=== PATIENT | female | born 1995 | race Caucasian/White ===

== ENCOUNTER 2018-12-25 15:33 | Inpatient (IN) | payer OTHER ==
[~2018-12-25] VITALS: Ht 160 cm; Wt 72.7 kg
[2018-12-25] MEDS ORDERED: DEXTROSE 5%-0.45% NACL 1,000 ML IV SCH (16:47)
[2018-12-25] MEDS ORDERED: NACL 0.9% 3 ML SYG IV SCH (17:00)
[2018-12-25] MEDS ORDERED: morphine 2 MG INJ IV PRN (17:00)
[2018-12-25] MEDS ORDERED: PIPER-TAZO 3.375 GM IV (PMX) 100 ML IVPB SCH (17:00)
[2018-12-25] MEDS: PIPER-TAZO 3.375 GM IV (PMX) 100 ML IVPB SCH (17:51)
[2018-12-25] MEDS: D5W-0.45 NACL + KCL 20 MEQ 1,000 ML IV SCH (17:51)
[2018-12-25] MEDS: morphine 2 MG INJ IV PRN (17:52)
--- NOTE | 2018-12-25 17:59 | HP ---
Date/Time of Note Date/Time of Note DATE: 12/25/18 TIME: 17:58 Assessment/Plan VTE Prophylaxis SCD applied (from Nsg): Yes Pharmacological prophylaxis: heparin Assessment/Plan Hospital Course 23 yo female with appendicitis - IV zosyn - Fluids while NPO - Dr Lawton from surgery to consult - Pain control HPI/ROS Admit Date/Time Admit Date/Time Dec 25, 2018 at 16:34 Hx of Present Illness 23 yo female wihtout pmh presents with abdominal pain Pain started about 12 noon today. Became very severe/disabling. Had nausea and vomiting. Went outside ED where she was given IV abx and analgesia. Feels better now. Wants to eat food ROS Constitutional: no complaints, improved Eyes: no complaints ENT: no complaints Respiratory: no complaints Cardiovascular: no complaints Gastrointestinal: no complaints Genitourinary: no complaints Musculoskeletal: no complaints Skin: no complaints Neurologic: no complaints Endocrine: no complaints Lymphatic: no complaints Psychological: no complaints, nl mood/affect Immunologic: no complaints PMH/Family/Social Past Medical History Medical History: no pertinent history Medications Current Medications IV Flush (NS 3 ml) 3 ml PER PROTOCOL IV ; Start 12/25/18 at 17:00 Morphine Sulfate (morphine) 2 mg Q1H PRN IV SEVERE PAIN LEVEL 7-10 Last administered on 12/25/18at 17:52; Admin Dose 2 MG; Start 12/25/18 at 17:30 Potassium Chloride/Dextrose/ Sod Cl 1,000 ml @ 130 mls/hr Q7H42M IV Last administered on 12/25/18at 17:51; Admin Dose 130 MLS/HR; Start 12/25/18 at 17:30 Piperacillin Sod/ Tazobactam Sod 100 ml @ 200 mls/hr Q6 IVPB Last administered on 12/25/18at 17:51; Admin Dose 200 MLS/HR; Start 12/25/18 at 18:00 Coded Allergies: No Known Allergy (Unverified , 12/25/18) Past Surgical History Past Surgical Hx: no surgical history Social History Alcohol Use: none Smoking Status: Never smoker Drug Use: none Exam/Review of Systems Exam Constitutional: alert, oriented, well developed Psych: no complaints, nl mood/affect Head: normocephalic, atraumatic Eyes: nl conjunctiva, EOMI, nl lids, nl sclera, PERRL ENMT: nl external ears & nose, nl lips & teeth, nl nasal mucosa & septum Neck: supple, non-tender Respiratory: clear to auscultation, normal air movement Cardiovascular: regular rate and rhythm, nl pulses Gastrointestinal: soft, nl liver, spleen, non-tender Musculoskeletal: nl extremities to inspection Extremities: normal pulses 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
[2018-12-25 18:11] VITALS: Ht 160 cm; Wt 72.7 kg
[2018-12-25 20:00] VITALS: BP 109/55; PULSE 105; RESP 18
[2018-12-25] MEDS: ACETAMINOPHEN 325 MG TAB PO PRN (20:58)
[2018-12-26] VITALS (19 sets, daily range): BP systolic 91–129; BP diastolic 44–79; PULSE 75–97; RESP 15–23
[2018-12-26] MEDS: PIPER-TAZO 3.375 GM IV (PMX) 100 ML IVPB SCH ×5 (00:05→23:41)
[2018-12-26] MEDS: D5W-0.45 NACL + KCL 20 MEQ 1,000 ML IV SCH ×2 (03:50→08:03)
--- NOTE | 2018-12-26 09:48 | PREAC ---
Date/Time of Note Date/Time of Note DATE: 12/26/18 TIME: 09:40 Anesthesia Eval and Record Evaluation Time Pre-Procedure Interview DATE: 12/26/18 TIME: 09:40 Age 23 Sex female NPO: 8 hrs Preoperative diagnosis appendicitis Planned procedure open appendicitis Past Medical History Past Medical History: None GI: Obesity (bmi 28) Surgery & Anesthesia Issues No known issue (never had anesthesia) Meds Anticoagulation: No Beta Katelyn within 24 hr: No Reason Beta Katelyn not given: Pt. not on B-Katelyn Current Medications IV Flush (NS 3 ml) 3 ml PER PROTOCOL IV ; Start 12/25/18 at 17:00 Morphine Sulfate (morphine) 2 mg Q1H PRN IV SEVERE PAIN LEVEL 7-10 Last administered on 12/25/18at 17:52; Admin Dose 2 MG; Start 12/25/18 at 17:30 Potassium Chloride/Dextrose/ Sod Cl 1,000 ml @ 130 mls/hr Q7H42M IV Last administered on 12/26/18at 08:03; Admin Dose 130 MLS/HR; Start 12/25/18 at 17:30 Piperacillin Sod/ Tazobactam Sod 100 ml @ 200 mls/hr Q6 IVPB Last administered on 12/26/18at 06:30; Admin Dose 200 MLS/HR; Start 12/25/18 at 18:00 Acetaminophen (Tylenol Tab) 650 mg Q6H PRN PO MILD PAIN(1-3)OR ELEVATED TEMP Last administered on 12/25/18at 20:58; Admin Dose 650 MG; Start 12/25/18 at 21:00 Meds reviewed: Yes Allergies Coded Allergies: No Known Allergy (Unverified , 12/25/18) Allergies Reviewed: Yes Labs/Studies Labs Reviewed: Reviewed by anesthesiologist Result Diagram: 12/26/18 0435 12/26/18 0435 Laboratory Tests 12/26/18 04:35 test: Negative Pre-procedure Exam Last vitals Vital Signs Date Temp Pulse Resp B/P (MAP) Pulse Ox O2 O2 Flow FiO2 Time Delivery Rate 12/26/18 98.9 89 18 91/44 (60) 94 Room Air 07:46 Airway: Adequate mouth opening, Adequate thyromental dist Mallampati: Mallampati II Teeth: Normal Lung: Normal Heart: Normal ASA Physical Status ASA physical status: 1 Emergency: None Planned Anesthetic General/MAC: ETT Planned Pain Management Parenteral pain med, Local by surgeon Pre-operative Attestations Prior to commencing anesthesia and surgery, the patient was re-evaluated, there was verification of: *The patient's identity *The results of appropriate recent lab work and preoperative vital signs *The above evaluation not changing prior to induction *Anesthetic plan, risk benefits, alternative and complications discussed with patient/family; questions answered; patient/family understands, accepts and wishes to proceed. ELADIA SINGH Dec 26, 2018 09:48
[2018-12-26] MEDS ORDERED: HYDROmorphONE 2 MG/ML SYG ONE (10:02)
[2018-12-26] MEDS ORDERED: MIDAZOLAM 1 MG/ML 2 ML INJ ONE (10:02)
[2018-12-26] MEDS ORDERED: LIDOCAINE 4% (MPF) 5 ML INJ ONE (10:06)
[2018-12-26] MEDS ORDERED: FAMOTIDINE 20 MG INJ ONE (10:26)
[2018-12-26] MEDS ORDERED: PROPOFOL 20 ML ONE (10:26)
[2018-12-26] MEDS ORDERED: LIDOCAINE 2% (SDV) 5 ML INJ ONE (10:26)
[2018-12-26] MEDS ORDERED: METOCLOPRAMIDE 10 MG INJ ONE (10:26)
[2018-12-26] MEDS ORDERED: ROCURONIUM 50 MG INJ ONE (10:26)
[2018-12-26] MEDS ORDERED: DEXAMETHASONE 4 MG/ML 5 ML INJ ONE (10:26)
[2018-12-26] MEDS ORDERED: ONDANSETRON 4 MG INJ ONE (10:27)
[2018-12-26] MEDS ORDERED: POLYMYXIN/BACITRACIN 1L IRRIG ONE (10:34)
[2018-12-26] MEDS ORDERED: GLYCOPYRROLATE 0.4 MG INJ ONE (10:58)
[2018-12-26] MEDS ORDERED: NEOSTIGMINE 3 MG/3 ML SYRINGE ONE (10:58)
[2018-12-26] MEDS ORDERED: HYDROmorphONE 1 MG/5 ML IV SYRINGE IV PRN ×3 (11:00)
[2018-12-26] MEDS ORDERED: MEPERIDINE 25 MG INJ IV PRN (11:00)
[2018-12-26] MEDS ORDERED: ONDANSETRON 4 MG INJ IV PRN (11:00)
[2018-12-26] MEDS ORDERED: OXYCODONE/ACETAMINOPHEN (5/325) TAB PO PRN ×2 (11:00)
[2018-12-26] MEDS ORDERED: LABETALOL HCL 20MG INJ IV PRN (11:00)
--- NOTE | 2018-12-26 11:18 | HP ---
DATE OF ADMISSION: 12/25/2018 DATE OF HISTORY AND PHYSICAL: 12/25/2018. ADMITTING DIAGNOSIS: Acute appendicitis. HISTORY OF PRESENT ILLNESS: The patient is a 23-year-old female began to develop severe right lower quadrant abdominal pain. She was seen at [facility] where CAT scan was performed and reveal ed evidence of acute appendicitis. She was then transferred to [facility] and Dr. Lawton was consulted for appendectomy. PAST MEDICAL HISTORY: None. MEDICATIONS: None. ALLERGIES: THE PATIENT HAS NO KNOWN DRUG ALLERGIES. SOCIAL HISTORY: The patient is otherwise healthy 23-year-old female. She does not abuse cigarettes or alcohol. FAMILY HISTORY: Noncontributory. PHYSICAL EXAMINATION: A focused exam is performed. There is marked tenderness in the right lower qu adrant over McBurney's point with rebound. No evidence of mass. No other findings on abdominal exam . ASSESSMENT: A 23-year-old female with acute appendicitis. PLAN: We will take the patient urgently to the OR for appendectomy. Dictated By: AUDIE LAWTON MD TL/NTS Conf#: [id number] DID#: [id number] CC: TATE MATT MD;*EndCC*
--- NOTE | 2018-12-26 12:38 | PAC ---
Date/Time of Note Date/Time of Note DATE: 12/26/18 TIME: 12:38 Post-Anesthesia Notes Post-Anesthesia Note Last documented vital signs Vital Signs Date Temp Pulse Resp B/P (MAP) Pulse Ox O2 O2 Flow FiO2 Time Delivery Rate 12/26/18 86 23 107/72 97 Room Air 12:18 (84) 12/26/18 8.0 11:43 12/26/18 98.0 11:23 Activity: WNL Respiratory function: WNL Cardiovascular function: WNL Mental status: Baseline Pain reasonably controlled: Yes Hydration appropriate: Yes Nausea/Vomiting absent: Yes ELADIA SINGH Dec 26, 2018 12:38
--- NOTE | 2018-12-26 13:26 | OPR ---
DATE OF OPERATION: 12/26/2018 PREOPERATIVE DIAGNOSIS: Acute appendicitis. POSTOPERATIVE DIAGNOSIS: Perforated appendicitis. PROCEDURE: Open appendectomy. ANESTHESIA: General. ANESTHESIOLOGIST: Nurse locum tenens, Kong Rose. SURGEON: Freedom Lawton MD. TELEGRAPHIC TYPEWRITER OPERATOR CHIEF: Debra Marquez MD. INDICATIONS FOR PROCEDURE: The patient is a 23-year-old female, who began to experience severe right lower quadrant pain. She was evaluated at [facility] and found to have CAT scan evidence o f acute appendicitis. She was transferred to [facility]. Dr. Lawton was consulted and confirmed the diagnosis and the patient was scheduled for appendectomy. DESCRIPTION OF PROCEDURE: The patient was brought to the operating theater, placed under general end otracheal tube anesthesia. The abdomen was prepped and draped in usual sterile fashion. Approximate ly 4 to 5 cm incision was made in the right lower quadrant over McBurney's point in the standard fash ion. Subcutaneous tissue was dissected with cautery down to the aponeurosis of the external oblique. The aponeurosis was incised in the direction of the fibers to expose the underlying fusion line of the internal oblique and rectus abdominis muscles. This fusion line was incised longitudinally. Sub sequently, the underlying transversalis muscle and peritoneum were divided longitudinally as well. T his allowed entry into the abdomen with digital manipulation and retrocecal inflamed appendix with ev idence of perforation was delivered into the wound. The mesoappendix was sequentially isolated, clam ped, transected and ligated with 3-0 Vicryl sutures. With the base of the appendix fully exposed, it was doubly clamped, transected and sent for permanent pathologic analysis. The appendiceal stump wa s then ligated first with a 3-0 Vicryl suture, and then with a 2-0 Prolene. The cecum was returned t o the abdomen and copious irrigation took place with antibiotic. They are warm irrigation. Approxim ately 1 liter of irrigation was used. At this point, the underlying incision was closed. The transv ersalis muscle, a portion of the posterior sheath and the anterior sheath and the internal oblique we re closed in single layer with a running 2-0 Prolene suture. The wound was irrigated with Betadine. The aponeurosis of the external oblique was then reapproximated with a 3-0 Vicryl suture and the wou nd was further irrigated and then the skin was reapproximated with skin raj. The patient tolerat ed the procedure well. The estimated blood loss was approximately 20 mL. There were no complication s and the patient was transported in stable condition to the recovery room. Dictated By: FREEDOM LAWTON MD TL/NTS Conf#: [id number] DID#: [id number] CC: TATE MATT MD;*EndCC*
--- NOTE | 2018-12-26 16:58 | PN ---
Date/Time of Note Date/Time of Note DATE: 12/26/18 TIME: 16:57 Assessment/Plan VTE Prophylaxis Risk score (from Ns)>0 risk: 0 SCD applied (from Ns): Yes Pharmacological prophylaxis: heparin Lines/Catheters IV Catheter Type (from Nrsg): Peripheral IV Assessment/Plan Hospital Course 23 yo female with appendicitis s/p appendectomy today - IV zosyn - Advance diet as tolerated - Pain control Result Diagram: 12/26/185 12/26/18 0435 Results 24hrs Laboratory Tests Test 12/26/18 04:35 White Blood Count 16.5 H Red Blood Count 3.74 L Hemoglobin 11.1 L Hematocrit 33.5 L Mean Corpuscular Volume 89.6 Mean Corpuscular Hemoglobin 29.7 Mean Corpuscular Hemoglobin Concent 33.1 Red Cell Distribution Width 12.3 Platelet Count 250 Mean Platelet Volume 9.7 Immature Granulocytes % 0.500 H Neutrophils % 77.9 H Lymphocytes % 14.9 L Monocytes % 6.0 Eosinophils % 0.4 Basophils % 0.3 Nucleated Red Blood Cells % 0.0 Immature Granulocytes # 0.080 H Neutrophils # 12.8 H Lymphocytes # 2.5 Monocytes # 1.0 H Eosinophils # 0.1 Basophils # 0.1 Nucleated Red Blood Cells # 0.0 Activated Partial Thromboplast Time 32.6 Sodium Level 140 Potassium Level 4.0 Chloride Level 106 Carbon Dioxide Level 27 Anion Gap 7 Blood Urea Nitrogen 2 L Creatinine 0.50 Est Glomerular Filtrat Rate mL/min > 60 Glucose Level 120 Hemoglobin A1c 5.0 Calcium Level 8.6 Total Bilirubin 0.9 Direct Bilirubin 0.00 Indirect Bilirubin 0.9 Aspartate Amino Transf (AST/SGOT) 11 L Alanine Aminotransferase (ALT/SGPT) 17 Alkaline Phosphatase 68 Total Protein 6.5 Albumin 3.6 Globulin 2.90 Albumin/Globulin Ratio 1.24 Subjective 24 Hr Interval Summary Free Text/Dictation Went for appendectomy today Exam/Review of Systems Exam Vitals Vital Signs Date Temp Pulse Resp B/P (MAP) Pulse Ox O2 O2 Flow FiO2 Time Delivery Rate 12/26/18 98.3 92 18 101/68 98 Room Air 14:16 (79) 12/26/18 8.0 11:43 Intake and Output 12/25/18 12/25/18 12/26/18 1515:00 23:00 07:00 IntakeIntake Total 1100 ml BalanceBalance 1100 ml Results Results 24hrs Laboratory Tests Test 12/26/18 04:35 White Blood Count 16.5 H Red Blood Count 3.74 L Hemoglobin 11.1 L Hematocrit 33.5 L Mean Corpuscular Volume 89.6 Mean Corpuscular Hemoglobin 29.7 Mean Corpuscular Hemoglobin Concent 33.1 Red Cell Distribution Width 12.3 Platelet Count 250 Mean Platelet Volume 9.7 Immature Granulocytes % 0.500 H Neutrophils % 77.9 H Lymphocytes % 14.9 L Monocytes % 6.0 Eosinophils % 0.4 Basophils % 0.3 Nucleated Red Blood Cells % 0.0 Immature Granulocytes # 0.080 H Neutrophils # 12.8 H Lymphocytes # 2.5 Monocytes # 1.0 H Eosinophils # 0.1 Basophils # 0.1 Nucleated Red Blood Cells # 0.0 Activated Partial Thromboplast Time 32.6 Sodium Level 140 Potassium Level 4.0 Chloride Level 106 Carbon Dioxide Level 27 Anion Gap 7 Blood Urea Nitrogen 2 L Creatinine 0.50 Est Glomerular Filtrat Rate mL/min > 60 Glucose Level 120 Hemoglobin A1c 5.0 Calcium Level 8.6 Total Bilirubin 0.9 Direct Bilirubin 0.00 Indirect Bilirubin 0.9 Aspartate Amino Transf (AST/SGOT) 11 L Alanine Aminotransferase (ALT/SGPT) 17 Alkaline Phosphatase 68 Total Protein 6.5 Albumin 3.6 Globulin 2.90 Albumin/Globulin Ratio 1.24 Medications Medication Current Medications IV Flush (NS 3 ml) 3 ml PER PROTOCOL IV ; Start 12/25/18 at 17:00 Morphine Sulfate (morphine) 2 mg Q1H PRN IV SEVERE PAIN LEVEL 7-10 Last administered on 12/25/18at 17:52; Admin Dose 2 MG; Start 12/25/18 at 17:30 Potassium Chloride/Dextrose/ Sod Cl 1,000 ml @ 130 mls/hr Q7H42M IV Last ad ministered on 12/26/18at 08:03; Admin Dose 130 MLS/HR; Start 12/25/18 at 17:30 Piperacillin Sod/ Tazobactam Sod 100 ml @ 200 mls/hr Q6 IVPB Last administered on 12/26/18at 13:20; Admin Dose 200 MLS/HR; Start 12/25/18 at 18:00 Acetaminophen (Tylenol Tab) 650 mg Q6H PRN PO MILD PAIN(1-3)OR ELEVATED TEMP Last administered on 12/25/18at 20:58; Admin Dose 650 MG; Start 12/25/18 at 21:00 Hydromorphone HCl (Dilaudid) 0.2 mg PACU PRN IV MILD PAIN 1-3; Start 12/26/18 at 11:00; Stop 12/26/18 at 18:00 Hydromorphone HCl (Dilaudid) 0.4 mg PACU PRN IV MOD PAIN 4-6; Start 12/26/18 at 11:00; Stop 12/26/18 at 18:00 Hydromorphone HCl (Dilaudid) 0.6 mg PACU PRN IV SEVERE PAIN 7-10 Last administered on 12/26/18at 12:08; Admin Dose 0.6 MG; Start 12/26/18 at 11:00; Stop 12/26/18 at 18:00 Oxycodone/ Acetaminophen (Percocet (5/ 325)) 1 tab PACU ORDER PRN PO .PAIN 1-5; Start 12/26/18 at 11:00; Stop 12/26/18 at 18:00 Oxycodone/ Acetaminophen (Percocet (5/ 325)) 2 tab PACU ORDER PRN PO .PAIN 6-10; Start 12/26/18 at 11:00; Stop 12/26/18 at 18:00 Ondansetron HCl (Zofran Inj) 4 mg PACU ORDER PRN IV NAUSEA/VOMITING; Start 12/26/18 at 11:00; Stop 12/26/18 at 18:00 Labetalol HCl (Labetalol) 5 mg PACU ORDER PRN IV HIGH BLOOD PRESSURE; Start 12/26/18 at 11:00; Stop 12/26/18 at 18:00 Meperidine HCl (Demerol) 25 mg PACU ORDER PRN IV .RIGORS; Start 12/26/18 at 11:00; Stop 12/26/18 at 18:00 TATE MATT MD Dec 26, 2018 16:58
[2018-12-26] MEDS: ACETAMINOPHEN 325 MG TAB PO PRN (17:26)
[2018-12-26] MEDS: morphine 2 MG INJ IV PRN ×2 (19:51→22:07)
[2018-12-27 02:00] VITALS: BP 103/55; PULSE 70; RESP 17
[2018-12-27] MEDS: PIPER-TAZO 3.375 GM IV (PMX) 100 ML IVPB SCH ×3 (05:14→17:07)
[2018-12-27 08:38] VITALS: BP_SYST 107; BP_SYST 112; BP_DIAS 60; BP_DIAS 66; PULSE 66; PULSE 73; RESP 17; RESP 19
--- NOTE | 2018-12-27 09:51 | PDOCDIS ---
Discharge Instructions DIAGNOSIS Discharge Diagnosis Appendicitis CONDITION [id number] Patient Condition: [id number] Stable FOLLOW UP/APPOINTMENTS Follow-up Plan Make an appointment to see Dr Lawton in the next couple weeks TATE MATT MD Dec 27, 2018 09:51
[2018-12-27] MEDS: morphine 2 MG INJ IV PRN (11:00)
[2018-12-27] MEDS: ACETAMINOPHEN 325 MG TAB PO PRN (11:03)
--- NOTE | 2018-12-27 11:23 | PN ---
DATE: 12/27/2018 Postop day #1 status post open appendectomy for perforated acute appendicitis. SUBJECTIVE: The patient complains of pain. Has not had a bowel movement, has passed a slight amount of gas. Appetite is not good. Has had full liquid a little bit, no vomiting. Has walked out of bed to the bathroom. OBJECTIVE: Awake, alert, oriented. VITAL SIGNS: Temperature maximum today recorded 98.3, heart rate 70, respirations 17, blood pressure 103/55, saturation 98% on room air. LABORATORY DATA: There is no lab result available for today. PHYSICAL EXAMINATION: GENERAL: Awake, alert, oriented, lying down in the bed, slow movement. HEART: Regular. LUNGS: Clear. Decreased breathing sound at bases. ABDOMEN: Relatively soft On the left side. On the right side, there is severe tenderness on palpation and there is some degree of rebound tenderness. Bowel sounds hypoactive That means that sounds like ileus is present. EXTREMITIES: Legs no calf tenderness. No pitting edema., no calf tenderness IMPRESSION: Postop day #1 status post open appendectomy for perforated acute appendicitis. PLAN: Considering the surgeon's operative note, this was a perforated acute appendicitis. Therefore, the patient requires to have more antibiotics IV for at least for 24 more hours and to be under observation and we will repeat CBC today stat and also tomorrow. If by tomorrow patient feels better and leukocyte count is down. It is possible to discharge her granted that she gets p.o. antibiotics at home. Dictated By: CURT ARIZA MD PS/NTS Conf#: [id number] DID#: [id number] CC: TATE MATT MD;*EndCC* MTDD
--- NOTE | 2018-12-27 15:53 | PN ---
Date/Time of Note Date/Time of Note DATE: 12/27/18 TIME: 15:52 Assessment/Plan VTE Prophylaxis Risk score (from Nsg)>0 risk: 1 SCD applied (from Nsg): Yes Pharmacological prophylaxis: heparin Lines/Catheters IV Catheter Type (from Nrsg): Peripheral IV Assessment/Plan Hospital Course 23 yo female with appendicitis s/p appendectomy 12/26 showing perforation - Continue IV zosyn - Advance diet as tolerated - Pain control Result Diagram: 12/27/18 1136 12/26/18 0435 Results 24hrs Laboratory Tests Test 12/27/18 11:36 White Blood Count 16.7 H Red Blood Count 4.01 L Hemoglobin 11.9 L Hematocrit 36.5 L Mean Corpuscular Volume 91.0 Mean Corpuscular Hemoglobin 29.7 Mean Corpuscular Hemoglobin Concent 32.6 Red Cell Distribution Width 12.2 Platelet Count 295 Mean Platelet Volume 9.8 Immature Granulocytes % 0.600 H Neutrophils % 76.5 Lymphocytes % 16.1 Monocytes % 6.6 Eosinophils % 0.0 Basophils % 0.2 Nucleated Red Blood Cells % 0.0 Immature Granulocytes # 0.100 H Neutrophils # 12.8 H Lymphocytes # 2.7 Monocytes # 1.1 H Eosinophils # 0.0 Basophils # 0.0 Nucleated Red Blood Cells # 0.0 Subjective 24 Hr Interval Summary Free Text/Dictation Underwent appendectomy yesterday per surgery, plan for continued admission for IV abx given perforation Mild pain Exam/Review of Systems Exam Vitals Vital Signs Date Temp Pulse Resp B/P (MAP) Pulse Ox O2 O2 Flow FiO2 Time Delivery Rate 12/27/18 98.0 73 17 107/60 98 08:38 (76) 12/26/18 Room Air 14:16 12/26/18 8.0 11:43 Intake and Output 12/26/18 12/26/18 12/27/18 1515:00 23:00 07:00 IntakeIntake Total 1560 ml 500 ml 560 ml OutputOutput Total 20 ml BalanceBalance 1540 ml 500 ml 560 ml Results Results 24hrs Laboratory Tests Test 12/27/18 11:36 White Blood Count 16.7 H Red Blood Count 4.01 L Hemoglobin 11.9 L Hematocrit 36.5 L Mean Corpuscular Volume 91.0 Mean Corpuscular Hemoglobin 29.7 Mean Corpuscular Hemoglobin Concent 32.6 Red Cell Distribution Width 12.2 Platelet Count 295 Mean Platelet Volume 9.8 Immature Granulocytes % 0.600 H Neutrophils % 76.5 Lymphocytes % 16.1 Monocytes % 6.6 Eosinophils % 0.0 Basophils % 0.2 Nucleated Red Blood Cells % 0.0 Immature Granulocytes # 0.100 H Neutrophils # 12.8 H Lymphocytes # 2.7 Monocytes # 1.1 H Eosinophils # 0.0 Basophils # 0.0 Nucleated Red Blood Cells # 0.0 Medications Medication Current Medications IV Flush (NS 3 ml) 3 ml PER PROTOCOL IV ; Start 12/25/18 at 17:00 Morphine Sulfate (morphine) 2 mg Q1H PRN IV SEVERE PAIN LEVEL 7-10 Last administered on 12/26/18at 22:07; Admin Dose 2 MG; Start 12/25/18 at 17:30 Piperacillin Sod/ Tazobactam Sod 100 ml @ 200 mls/hr Q6 IVPB Last administered on 12/27/18at 12:05; Admin Dose 200 MLS/HR; Start 12/25/18 at 18:00 Acetaminophen (Tylenol Tab) 650 mg Q6H PRN PO MILD PAIN(1-3)OR ELEVATED TEMP Last administered on 12/27/18at 11:03; Admin Dose 650 MG; Start 12/25/18 at 21:00 TATE MATT MD Dec 27, 2018 15:53
[2018-12-27] MEDS ORDERED: POLYETHYLENE GLYCOL 17 GM PACKET ONE (18:26)
[2018-12-27] MEDS: POLYETHYLENE GLYCOL 17 GM PACKET GTB SCH (18:28)
[2018-12-27 20:27] VITALS: BP 117/65; PULSE 72; RESP 18
[2018-12-27] MEDS ORDERED: CEPASTAT LOZENGE MT PRN (21:00)
[2018-12-28] MEDS: PIPER-TAZO 3.375 GM IV (PMX) 100 ML IVPB SCH ×4 (00:21→17:42)
[2018-12-28 02:31] VITALS: BP 113/63; PULSE 69; RESP 18
[2018-12-28 08:00] VITALS: BP 100/56; PULSE 66; RESP 16
[2018-12-28] MEDS: POLYETHYLENE GLYCOL 17 GM PACKET GTB SCH (08:22)
[2018-12-28 14:00] VITALS: BP 107/59; PULSE 92; RESP 16
[2018-12-28] MEDS ORDERED: CIPR500T4 PO (14:42)
[2018-12-28] MEDS ORDERED: METR500T PO (14:42)
--- NOTE | 2018-12-28 14:44 | DS ---
Date/Time of Note Date/Time of Note DATE: 12/28/18 TIME: 14:43 Discharge Summary Admission/Discharge Info Admit Date/Time Dec 25, 2018 at 16:34 Discharge Date/Time Discharge Diagnosis Appendicitis Patient Condition: Stable Hx of Present Illness 23 yo female [facility] presents with abdominal pain Pain started about 12 noon today. Became very severe/disabling. Had nausea and vomiting. Went outside ED where she was given IV abx and analgesia. Feels better now. Wants to eat food Hospital Course 23 yo female with appendicitis. She was treated with zosyn. She underwent ap pendectomy 12/26 which showed evidence of perforation so she remained in house for IV antibiotics. She was then discharged to home with Rx for cipro and flagyl and will follow up with Dr Lawton in clinic Home Meds Active Scripts Metronidazole* (Flagyl*) 500 Mg Tablet, 500 MG PO Q8 for 5 Days, #15 TAB Prov:TATE MATT MD 12/28/18 Ciprofloxacin Hcl* (Ciprofloxacin Hcl*) 500 Mg Tablet, 500 MG PO BID for 5 Days, #10 TAB Prov:TATE MATT MD 12/28/18 Follow-up Plan Make an appointment to see Dr Lawton in the next couple weeks Primary Care Provider Not On Staff Doctor Pending Labs Laboratory Tests Test 12/28/18 04:54 White Blood Count 10.4 10^3/ul (4.8-10.8) Red Blood Count 3.76 10^6/ul (4.20-5.40) Hemoglobin 11.1 g/dl (12.0-16.0) Hematocrit 34.9 % (37.0-47.0) Mean Corpuscular Volume 92.8 fl (82.0-101.0) Mean Corpuscular Hemoglobin 29.5 pg (29.0-33.0) Mean Corpuscular Hemoglobin Concent 31.8 g/dl (32.0-37.0) Red Cell Distribution Width 12.5 % (11.5-14.5) Platelet Count 282 10^3/UL (140-415) Mean Platelet Volume 10.0 fl (7.4-10.4) Immature Granulocytes % 0.400 % (0.001-0.429) Neutrophils % 55.7 % (39.0-77.0) Lymphocytes % 37.9 % (15.0-51.0) Monocytes % 5.2 % (0.0-11.0) Eosinophils % 0.5 % (0.0-7.0) Basophils % 0.3 % (0.0-2.0) Nucleated Red Blood Cells % 0.0 /100WBC (0.0-0.0) Immature Granulocytes # 0.040 10^3/ul (0.0-0.031) Neutrophils # 5.8 10^3/ul (1.6-7.5) Lymphocytes # 3.9 10^3/ul (0.8-2.9) Monocytes # 0.5 10^3/ul (0.3-0.9) Eosinophils # 0.1 10^3/ul (0.0-0.5) Basophils # 0.0 10^3/ul (0.0-0.1) Nucleated Red Blood Cells # 0.0 10^3/ul (0.0-0.0) TATE MATT MD Dec 28, 2018 14:44
--- NOTE | 2018-12-28 16:21 | PN ---
DATE: 12/28/2018 Postop day #2 status post laparotomy, appendectomy for perforated appendicitis SUBJECTIVE: Feels better than yesterday. Has tolerated full liquid diet and has been out of bed, wa lked a little bit around, has passed gas. Small amount of bowel movement. OBJECTIVE: GENERAL: Awake and alert. VITAL SIGNS: Temperature 98.3 maximum heart rate 69, respiration 18, blood pressure 113/63, saturati on 99% on room air. LABORATORY DATA: WBC has dropped actually since yesterday. Today is 10,400 with 56% segmented, hemo globin 11.1, hematocrit 34.9. HEART: Regular. LUNGS: Clear. ABDOMEN: Not distended. Bowel sounds 2+/4+. Still there is quite tenderness on the right side of t he abdomen on palpation. Pathology report also is back which shows perforation of acute appendicitis. PLAN: We recommend to continue IV antibiotic Zosyn that she is getting and keep on full liquid diet today and tomorrow, advance diet to soft diet, it is probably possible to discharge the patient tomor row, but has to get ciprofloxacin and Flagyl p.o. as an outpatient antibiotic considering that there has been perforation of the appendicitis. Dictated By: CURT ARIZA MD PS/NTS Conf#: [id number] DID#: [id number] CC: TATE MATT MD;*EndCC*
== END 2018-12-28 19:30 | disposition home or self-care (01) | DRG 340 ==
LOC: 5EC 16:34
PROVIDERS: ADMIT Internal Medicine; ATTEND Internal Medicine
PROC: 0DTJ0ZZ Resection of Appendix, Open Approach (ICD-10-PCS; principal; 2018-12-26 10:30)
DX: K35.32 Acute appendicitis with perforation, localized peritonitis, and gangrene, without abscess (principal)
CPT/HCPCS: 80053; 83036; 85025; 85730; 88304; J1100; J1170; J2250; J2270; J2405; J2543; J2710; J2765; J3480; J7042